=== PATIENT | female | born 1985 | race Hispanic/Latino ===

== ENCOUNTER 2022-12-12 14:56 | Emergency (ER) | payer OTHER ==
[~2022-12-12] VITALS: Ht 170.2 cm; Wt 99.8 kg
[2022-12-12 15:33] LABS: CLARITY,URINE CLEAR (CLEAR); COLOR,URINE YELLOW (YELLOW); KETONES,URINE NEGATIVE (NEGATIVE); LEUKOCYTE ESTERASE ,URINE NEGATIVE (NEGATIVE); NITRITE,URINE NEGATIVE (NEGATIVE); PROTEIN,URINE DIPSTICK NEGATIVE (NEGATIVE); URINE UROBILINOGEN 0.2 mg/dL (0.2 - 1)
[2022-12-12 15:42] LABS: EPITHELIAL CELLS,URINE RARE /LPF
[2022-12-12] MEDS ORDERED: CELEBREX100 MG PO (16:45)
[2022-12-12] MEDS ORDERED: MEDROL4 M2 PO (16:45)
[2022-12-12] MEDS ORDERED: METHOCARBAMOL500 MG PO (16:45)
== END 2022-12-12 16:59 | disposition home or self-care (01) ==
LOC: ER 15:02
DX: S39.012A Strain of muscle, fascia and tendon of lower back, initial encounter (principal); R30.0 Dysuria
CPT/HCPCS: 81001; 81025; 87086; 99283

== ENCOUNTER 2023-01-11 21:13 | Emergency (ER) | payer OTHER ==
[~2023-01-11] VITALS: Ht 170.2 cm; Wt 99.8 kg
[~2023-01-11 21:13] MED LIST: CELEBREX100 MG PO; MEDROL4 M2 PO; METHOCARBAMOL500 MG PO
[2023-01-11] MEDS ORDERED: BACTRIM DS TAB1 EACH PO (22:19)
[2023-01-11] MEDS ORDERED: BACITRACIN15 GM TOP (22:19)
[2023-01-11] MEDS ORDERED: CLEOCIN HCL300 MG PO (22:19)
== END 2023-01-11 22:25 | disposition home or self-care (01) ==
LOC: ER 21:36
DX: N61.0 Mastitis without abscess (principal)
CPT/HCPCS: 99282